=== PATIENT | female | born 1970 | race Caucasian/White ===

== ENCOUNTER 2024-04-04 09:31 | Emergency (ER) | payer OTHER, SELFPAY ==
[2024-04-04 10:00] VITALS: BP 129/81; PULSE 67; RESP 16; TEMP 36.2; O2SAT 99
--- NOTE | 2024-04-04 10:21 | ED.URI ---
HPI - URI/Sore Throat General Chief Complaint: Upper Respiratory Infection Stated Complaint: sorethroat,rt earache Time Seen by Provider: 04/04/24 09:47 Source: patient Mode of arrival: ambulatory Limitations: no limitations History of Present Illness HPI Narrative: 53-year-old female presents to [facility] with complaints of sore throat, right ear pain, sinus pressure, postnasal drip and nasal congestion for the past 3-5 days. Patient has been taking [id number] NyQuil and using cough drops with little relief. Patient denies fever, body aches, chills, nausea vomiting or diarrhea. MD elicited complaint: sore throat, nasal congestion and sinus pain Onset (ago): day(s) (4) Consistency: constant Treatments prior to arrival: cold medicine Related Data Home Medications Medication Instructions Recorded Confirmed Unknown 8 Years Iud 04/04/24 enalapril 10 tablet 04/04/24 mg-hydrochlorothiazide 25 mg tablet famotidine 40 mg tablet mg 04/04/24 pantoprazole 40 mg tablet,delayed mg PO 04/04/24 release rosuvastatin 20 mg tablet mg 04/04/24 valacyclovir 500 mg tablet mg 04/04/24 Allergies Allergy/AdvReac Type Severity Reaction Status Date / Time Penicillins AdvReac Unknown Vomiting Verified 04/04/24 09:57 Review of Systems Constitutional: Constitutional: Denies chills, Denies fatigue, Denies fever(s) and Denies weakness ENT: Denies vertigo, Denies dizziness, Reports nasal congestion and Reports sore throat Comments: Right ear pain Cardiovascular: Cardiovascular: Denies chest pain Respiratory: Respiratory: Reports cough, Denies dyspnea and Denies wheezing Gastrointestinal: Gastrointestinal: Denies diarrhea, Denies nausea and Denies vomiting Genitourinary: Genitourinary: Denies dysuria Musculoskeletal: Musculoskeletal: Denies arthralgias and Denies joint swelling Integumentary/Breasts: Skin/Breast: Denies rash Neurologic: Denies dizziness, Denies syncope and Denies headache(s) PMFSH Comments At time of signature, I agree with nursing past medical, surgical, social and family history. There is no relevant family history pertinent to the presenting complaint. Exam Const: General: healthy appearing Nutritional Appearance: well nourished Orientation/consciousness: patient oriented x3 Limitations: no limitations HENMT: Head: normal to inspection Ears: external ears normal, EAC's normal and TM abnormal dull on the right and erythematous on the right Neck: Neck: normal visual inspection Resp: Effort & Inspection: normal respiratory effort and not labored Auscultation: clear to auscultation bilaterally, no crackles, no rales and no rhonchi Cardio: Rate: regular rate Rhythm: regular rhythm Skin: Rashes: no rashes Wounds: no wounds Neuro: General: patient oriented x3 Speech: normal speech Gait exam (Neuro): Normal gait present Psych: Affect: normal affect Attitude: cooperative Course Course Level of Care: Express Care Visit Vital Signs Vital signs: Vital Signs Temperature 36.2 C L 04/04/24 10:00 Pulse Rate 67 04/04/24 10:00 Respiratory Rate 16 04/04/24 10:00 Blood Pressure 129/81 04/04/24 10:00 Pulse Oximetry 99 04/04/24 10:00 Oxygen Delivery Room Air 04/04/24 10:00 Temperature 36.2 C L 04/04/24 10:00 Pulse Rate 67 04/04/24 10:00 Respiratory Rate 16 04/04/24 10:00 Blood Pressure 129/81 04/04/24 10:00 Pulse Oximetry 99 04/04/24 10:00 Oxygen Delivery Room Air 04/04/24 10:00 MDM - URI/Sore Throat MDM Narrative Medical decision making narrative: Instructed patient to take Claritin and Flonase daily as prescribed. Instructed patient to take antibiotic as prescribed. Patient agrees to follow-up with primary care provider if symptoms are not improved. Differential Diagnosis Differential diagnosis: Likely upper respiratory infection, viral infection and bronchitis Lab Data Labs: Strep Screen Presumptiv
== END 2024-04-04 10:33 | disposition home or self-care (01) ==
PROVIDERS: Emergency Provider Nurse Practitioner Family; PCP Registered Nurse
DX: H66.91 Otitis media, unspecified, right ear (principal); J01.10 Acute frontal sinusitis, unspecified
CPT/HCPCS: 87081; 87880; 99213; G0463